=== PATIENT | female | born 1975 | race Hispanic/Latino ===

== ENCOUNTER → 2024-04-19 12:55 | Outpatient (REF) | payer OTHER, SELFPAY | LOC: WDC 12:55 | PROVIDERS: ATTENDING PHYSICIAN Obstetrics & Gynecology; FAMILY PHYSICIAN Internal Medicine | DX: Z12.31 Encounter for screening mammogram for malignant neoplasm of breast (principal) | CPT/HCPCS: 77063; 77067 ==

== ENCOUNTER 2025-03-07 06:16 | Day surgery (SDC) | payer OTHER, SELFPAY | END 2025-03-07 11:41 | disposition home or self-care (01) | LOC: GI 06:16 | PROVIDERS: ATTENDING PHYSICIAN Internal Medicine Gastroenterology | DX: Z12.11 Encounter for screening for malignant neoplasm of colon (principal); D12.3 Benign neoplasm of transverse colon; K64.9 Unspecified hemorrhoids | CPT/HCPCS: 45385; 88305 ==